=== PATIENT | male | born 1985 | race Caucasian/White ===

== ENCOUNTER 2016-12-17 12:41 | Emergency (ER) ==
[2016-12-17 13:13] LABS: MANUAL DIFF NEEDED? NO
[2016-12-17 13:23] LABS: BASO% 0.3 % (0.0-0.8); EOS# 0.14 X1000 (0.0-0.7); EOS% 1.3 % (0.0-10.0); HEMATOCRIT 37.9 % (42.0-52.0); HEMOGLOBIN 13.5 g/dL (14.0-18.0); IMM GRAN# 0.03 X1000 (0.0-0.04); IMM GRAN% 0.3 % (0.0-0.5); LYMPH# 1.95 X1000 (1.2-3.4); LYMPH% 17.5 % (20.5-51.1); MCHC 35.6 g/dL (33-37); MCV 86.9 FL (81-99); MONO# 1.01 X1000 (0.11-0.59); MONO% 9.1 % (1.7-9.3); MPV 10.1 FL (7.4-10.4); NEUT% 71.5 % (42.2-75.2); PLT 349 X1000 (130-400); RBC 4.36 XMIL (4.7-6.1)
[2016-12-17] MEDS ORDERED: SEPTRA DS PO ONE (13:40)
[2016-12-17] MEDS ORDERED: KEFZOL IM ONE (13:40)
[2016-12-17] MEDS ORDERED: STERILE WATER INJ. ONE (13:51)
--- NOTE | 2016-12-17 13:58 | PROVIDER DOCUMENTATION ---
HPI-Rash/Wound/ReCheck - General Source: patient - History of Present Illness-Dermatology Location: reports: upper extremity (right hand palmar side) Quality: reports: burning, painful Severity: reports: moderate Onset/Duration: reports: abrupt, other (3 weeks) Timing: reports: still present, constant Context/Associated Symptoms: reports: abscess, tender area Locality of Occurance: Home Similar Symptoms Previously?: No Recently seen or treated by another doctor?: No - General Chief Complaint: Abscess Stated Complaint: HAND INFECTED Time Seen by Provider: 12/17/16 13:32 Allergies/Adverse Reactions: Allergies Allergy/AdvReac Type Severity Reaction Status Date / Time No Known Allergies Allergy Verified 12/17/16 13:42 Home Medications: Home Medication List Medication Instructions Recorded Confirmed Last Taken Type Cephalexin 500 mg PO TID #20 capsule 12/17/16 Unknown Rx Sulfamethoxazole/Trimethoprim 2 each PO BID #14 tablet 12/17/16 Unknown Rx [Bactrim Ds Tablet] - History of Present Illness-Dermatology Nature of Presenting Problem: Patient is a 31 y/o M that presents to the ER with possible abscess to right hand x 3 weeks. initially began when patient was working on pliers. (Pantera Garcia) Review of Systems - Adult - REVIEW OF SYSTEMS - ADULT Constitutional: denies: chills, fever Eyes: reports: no symptoms reported Ears, Nose, Mouth & Throat: reports: no symptoms reported Cardiovascular: denies: chest pain, palpitations, syncope Respiratory: denies: cough, shortness of breath, wheezing Gastrointestinal: denies: abdominal pain, diarrhea, nausea, vomiting Genitourinary: reports: no symptoms reported Musculoskeletal: denies: back pain, joint pain, neck pain Integumentary: reports: skin sores/ulcer. denies: itching, rash Neurological: reports: no symptoms reported Psychiatric: reports: no symptoms reported Endocrine: reports: no symptoms reported Hematologic/Lymphatic: reports: no symptoms reported Allergic/Immunologic: reports: no symptoms reported All Other Systems: Reviewed and Negative Past History - Adult - PAST MEDICAL HISTORY-ADULT Review of Records: reports: Old Records Reviewed, Nursing Assessment Review, Medications Reviewed - PRIOR SURGERIES/PROCEDURES Surgical/Procedure History: reports: reviewed, not pertinent - IMMUNIZATION STATUS Childhood Immunizations: See Nurse Assessment Flu Vaccine: See Nurse Assessment - FAMILY HISTORY Family History: reviewed, not pertinent - SOCIAL HISTORY Living Situation: family Physical Exam-General - PHYSICAL EXAM-ADULT Initial Vital Signs Reviewed: Yes - CONSTITUTIONAL General Appearance: alert, no apparent distress - EYES Eyes: PERRL/EOMI, pink conjunctivae - HEAD, EARS, NOSE, MOUTH & THROAT HENMT: normocephalic/atraumatic, moist mucous membranes, normal ENT inspection - NECK Neck: full range of motion, normal inspection - RESPIRATORY Respiratory: lungs clear, normal breath sounds, no respiratory distress, no accessory muscle use - CARDIOVASCULAR Cardiovascular: regular rate, rhythm, no edema, no murmur - GASTROINTESTINAL (ABDOMEN) Abdominal Exam: normal bowel sounds, non tender, soft - MUSCULOSKELETAL Back Exam: normal inspection, no vertebral tenderness Extremity: no calf tenderness, normal capillary refill, pelvis stable - SKIN Integumentary: warm/dry, other (small area to right hand ( about marble size), has red streaking to arm) - NEUROLOGIC Neurologic: grossly normal, no motor/sensory deficits - PSYCHIATRIC Psych/Mental Status: normal mood/affect, normal thought content, normal thought process, oriented x 3 Progress - PLAN OF CARE/RESULTS Progress/Plan/Lab Results: plan of care-xray, meds, i&d Vital Signs Temp Pulse Resp BP Pulse Ox 12/17/16 12:47 98.6 F 111 H 18 136/93 100 No Known Allergies Allergy (Verified 12/17/16 13:42) No Home Medications 12/17/16 Laboratory 12/17/16 13:07 WBC 11.12 H RBC 4.36 L Hgb 13.5 L Hct 37.9 L MCV 86.9 MCH 31.0 MCHC 35.6 RDW Std Deviation 13.1 Plt Count 349 MPV 10.1 Immature Gran % (Auto) 0.3 Neut % (Auto) 71.5 Lymph % (Auto) 17.5 L Barber % (Auto) 9.1 Eos % (Auto) 1.3 Baso % (Auto) 0.3 Immature Gran # (Auto) 0.03 Neut # (Auto) 7.96 H Lymph # (Auto) 1.95 Barber # (Auto) 1.01 H Eos # (Auto) 0.14 Baso # (Auto) 0.03 Orders Category Date Time Status HAND COMPLETE RIGHT [RAD] Stat Exams 12/17/16 13:40 Taken ABSCESS CULTURE INC GRAM STAIN [RM] Routine Lab 12/17/16 13:40 Ordered CBC WITH ELECTRONIC DIFF [HEME] Stat Lab 12/17/16 13:07 Completed CefAZOLIN [Kefzol] Med 12/17/16 13:40 Discontinued 1 gm IM NOW ONE Sulfamethoxazole/Tmp D.s. [Septra Ds] Med 12/17/16 13:40 Discontinued 1 each PO NOW ONE Water, Sterile Inj [Sterile Water Inj] Med 12/17/16 13:51 Discontinued 10 ml .ROUTE .STK-MED ONE pt will be d/c home f/u with pcp or surgeon, pt was clinically stable, Rx given (Pantera Garcia) Procedures - INCISION & DRAINAGE Site: R hand Abscess Type: Simple Prepped with: Betadine Blade Size: needle lancet Packing placed?: No Sterile Dressing Applied?: No Drainage: Small Amount Departure - Departure Time of Disposition Order: 14:06 Certified Medical Emergency: Emergent - Departure DIAGNOSIS: Abscess of right hand Disposition: HOME 01 Condition: Stable Additional Instructions: ED Follow Up Instructions: You have been treated by a care provider in the Emergency Department. These instructions are being provided to you so you can have an understanding of how to care for yourself upon discharge. Upon discharge from the Emergency Department, you are responsible for making arrangements for follow-up care by a physician of your choice. Take all prescribed medications as directed. Return to the Emergency Department immediately for any new or worsening symptoms. You may call the Physician Referral phone number at [phone] to obtain a list of Physicians who are taking new patients. Return to the ED in two days for recheck if not better or sooner if worse. Prescriptions: Sulfamethoxazole/Trimethoprim [Bactrim Ds Tablet] 2 each PO BID #14 tablet Cephalexin 500 mg PO TID #20 capsule Referrals: None,PCP [Primary Care Provider] - Yong Hsieh MD [STAFF PHYSICIAN] - Call for Appoint. 1-2days Forms: Return to School/Parent Work Instructions: Abscess Attestation - Scribe Verification/Attestation Scribe:: Pantera Garcia Acting as Scribe for:: Quentin Madison Scribe documention review:: This chart was documented by a scribe and accurately reflects the service the provider performed and the decisions made by the provider. Physician Attestation - Physician Attestation I, the provider, attest to the following statement:: Quentin Madison Physician documentation Attestation:: This documentation recorded by the scribe accurately reflects the service I personally performed and the decisions made by me.
[2016-12-17 14:19] VITALS: BP 110/76
--- NOTE | 2016-12-17 15:28 | Diag Imaging Result Document ---
PROCEDURE NAME: HAND COMPLETE RIGHT - 12/17/2016 RIGHT HAND 3 VIEWS: COMPARISON: None. FINDINGS: There is some degenerative-appearing irregularity at the 5th carpometacarpal joint. No clear fracture or subluxation. Joint spaces are clear. IMPRESSION: No acute disease. No foreign body.
== END 2016-12-17 14:30 | disposition home or self-care (01) ==
LOC: ED 12:41
DX: L02.511 Cutaneous abscess of right hand (principal); M79.641 Pain in right hand; L53.9 Erythematous condition, unspecified
CPT/HCPCS: 85025; 87070; 87077; J0690